=== PATIENT | female | born 1935 | race Caucasian/White ===

== ENCOUNTER → 2017-03-05 | Outpatient (CLI) | payer MEDICARE, BC ==
[~2017-03-05] MED LIST: ALPRAZOLAM PO; ASPIRIN PO; CALTRATE 600+D PO; CARBIDOPA-LEVO1 TA1 PO; HYDROCHLOROTHIA25 MG PO; PERCOCET5/325 PO; PRAVACHOL20 MG PO; PRILOSEC PO; PRILOSEC20 MG PO; PROTONIX PO; SINEMET CR1 TAB 25/1 PO; SINEMET PO; ZETIA PO
--- NOTE | ~2017-03-05 | MR17 ---
[facility] A Service of [facility] & [facility] RADIOLOGY TEXT RESULTS PATIENT: TAMICA STRINGER LOCATION: CMRI : 37 UNIT #: [id number] AGE: [address]: Alvin Diaz II, MD SEX: F ORDER DR: [id number] [facility] [address] [place], [place] [address] [id number] O MR#: [id number] Acc #: [id number] NAME: TAMICA STRINGER : 1935 SEX: F STUDY DATE/TIME: 03/05/2017 13:59 UNIT: [facility] ROOM: STUDY DESCRIPTION: MR Brain WWo Contrast Attending Physician: Alvin Diaz II., M.D. Referring Physician: Alvin Diaz II., M.D. Ordering Physician: Alvin Diaz II., M.D. Primary Care Physician: Jorgito Lion M.D. MRI CENTER REPORT This report is preliminary unless electronic signature is present. EXAM MRI of the brain with and without contrast dated 03/05/2017. COMPARISON CT head without contrast dated 11/19/2015. HISTORY Patient fell August 20:16 and in September and October. Egb-kz-kjgey months ago, patient fell at 2017 and hit head on of wheelchair. Bilateral leg weakness. Patient cannot stand. History of Parkinson's disease and possible stroke. FINDINGS Multisequence multiplanar imaging of the brain was obtained with and without contrast. GFR measured greater than 60. 14 mL of MultiHance was administered intravenously. No acute stroke, space-occupying intracranial mass, mass effect, midline shift or hydrocephalus. Scattered multiple hyperintense T2 nonenhancing lesions are noted in the subcortical and periventricular white matter. Vascular flow voids of the major cerebral arteries and dural venous sinuses are not completely occluded in these thicker slices. Thick slices through the sella with the pituitary gland, pineal region and upper cervical spine demonstrates a partially empty sella. Mild degenerative changes are noted in the cervical spine. Postcontrast sequences do not demonstrate enhancing lesions. IMPRESSION 1. No acute intracranial abnormality. 2. Scattered multiple hyperintense T2-signal lesions are noted in the subcortical and periventricular white matter. They are likely related to mild chronic microvascular ischemic change or migraine based on age and statistics. Nonspecific. 3. Grossly no significant abnormality could be discerned in the [facility] A Service of [facility] & [facility] RADIOLOGY TEXT RESULTS PATIENT: TAMICA STRINGER LOCATION: CMRI : 37 UNIT #: [id number] AGE: [address]: Alvin Diaz II, MD SEX: F ORDER DR: region of the mid brain. Dictated by... Alberta Dennison M.D. THIS IS AN ELECTRONICALLY VERIFIED REPORT Alberta Dennison M.D. at 03/09/2017 4:12 PM CPR/nahun TD: 03/06/2017 12:23 JOB #: [id number] MRI CENTER REPORT Page 1 of 1 COPY
[2017-03-05 14:56] LABS: POC - CREATININE 0.72 mg/dL (0.44-1.03); POC - GFR >60.0 mL/min (>60)
== END | disposition home or self-care (01) ==
LOC: CMRI 13:25
PROVIDERS: Psychiatry & Neurology Neurology
DX: G20 Parkinson's disease (principal); R90.82 White matter disease, unspecified; G93.9 Disorder of brain, unspecified
CPT/HCPCS: 70553; 82565; A9577